=== PATIENT | male | born 2000 | race Caucasian/White ===

== ENCOUNTER 2022-06-24 17:05 | Emergency (ER) | payer OTHER ==
[2022-06-24] MEDS ORDERED: Lorazepam 2 MG/ML VIAL ONE (17:40)
== END 2022-06-24 18:33 | disposition home or self-care (01) ==
LOC: CSHERS 17:05
DX: F41.9 Anxiety disorder, unspecified (principal); H01.006 Unspecified blepharitis left eye, unspecified eyelid; H01.003 Unspecified blepharitis right eye, unspecified eyelid
CPT/HCPCS: 93005; 96372; J2060